=== PATIENT | female | born 2000 | race Hispanic/Latino ===

== ENCOUNTER 2022-11-14 08:50 | Emergency (ER) | payer MEDICAID ==
[~2022-11-14] VITALS: Ht 152.4 cm; Wt 66.7 kg
[2022-11-14 11:18] VITALS: BP 124/78; PULSE 80; RESP 18; O2SAT 99
== END 2022-11-14 11:32 | disposition home or self-care (01) ==
LOC: EDH 08:50
DX: S63.615A Unspecified sprain of left ring finger, initial encounter (principal); X58.XXXA Exposure to other specified factors, initial encounter; Y93.89 Activity, other specified; Y92.89 Other specified places as the place of occurrence of the external cause; Y99.8 Other external cause status
CPT/HCPCS: 73140